=== PATIENT | female | born 1995 | race Hispanic/Latino ===

== ENCOUNTER 2022-05-07 11:21 | Outpatient (CLI) | payer OTHER ==
[2022-05-07 13:36] LABS: BHCG - Serum Negative (NEGATIVE); Pregs Control Background? CLEAR/WHITE (CLR/WHITE); Pregs Control Bar Appear? YES (CONTROL BAR)
== END 2022-05-07 11:22 | disposition home or self-care (01) ==
LOC: CSHLAB 11:21
PROVIDERS: ATTEND Otolaryngology Otolaryngic Allergy
DX: Z01.812 Encounter for preprocedural laboratory examination (principal); E04.1 Nontoxic single thyroid nodule
CPT/HCPCS: 84703; 85014

== ENCOUNTER 2022-05-12 05:48 | Day surgery (SDC) | payer OTHER ==
[2022-05-08 15:53] VITALS: BMI 29.9
[2022-05-12] MEDS ORDERED: CEFAZOLIN 1 GM VIAL ONE (06:19)
[2022-05-12] MEDS ORDERED: Lidocaine 1% PF 5 ML VIAL ONE (06:29)
[2022-05-12] MEDS ORDERED: PROPOFOL 20 ML ONE (06:29)
[2022-05-12] MEDS ORDERED: Midazolam HCl 2 mg/2 ml Vial ONE (06:29)
[2022-05-12] MEDS ORDERED: Rocuronium Bromide 10 MG/ML (10ML VIAL) ONE (06:29)
[2022-05-12] MEDS ORDERED: Glycopyrrolate 0.2 MG/ML 5 ML SYRINGE ONE (06:29)
[2022-05-12] MEDS ORDERED: Ondansetron PF 4 MG/2 ML Vial ONE (06:29)
[2022-05-12] MEDS ORDERED: Fentanyl 100 MCG/2 ML VIAL ONE ×2 (06:30→08:24)
[2022-05-12] MEDS ORDERED: Lidocaine 1% w/Epinephrine 1:100K 20 ML VIAL ONE (07:08)
[2022-05-12] MEDS ORDERED: Meperidine HCl/PF 25 MG/ML VIAL ONE (07:17)
[2022-05-12] MEDS ORDERED: HYDROcodone/Acetaminophen 5/325 mg Tablet ONE (09:19)
== END 2022-05-12 10:10 | disposition home or self-care (01) ==
LOC: CSHSDC 05:48
PROVIDERS: ATTEND Otolaryngology Otolaryngic Allergy
PROC: 0GTH0ZZ Resection of Right Thyroid Gland Lobe, Open Approach (ICD-10-PCS; principal; 2022-05-12)
DX: E04.1 Nontoxic single thyroid nodule (principal); D34 Benign neoplasm of thyroid gland; E06.3 Autoimmune thyroiditis; G43.909 Migraine, unspecified, not intractable, without status migrainosus; D64.9 Anemia, unspecified; Z79.899 Other long term (current) drug therapy
CPT/HCPCS: 88307; J0690; J2175; J2250; J2405; J2704; J3010